=== PATIENT | female | born 1975 | race Hispanic/Latino ===

== ENCOUNTER 2020-03-27 19:31 | Inpatient (IN) | payer SELFPAY ==
[~2020-03-27] VITALS: Ht 160 cm; Wt 89.5 kg
[~2020-03-27 19:31] MED LIST: GLUCOPHAGE500 MG PO
[2020-03-27] MEDS ORDERED: ALBUTEROL SULF 0.083% NEB SOLN 3 ML NEB NEB STA (19:38)
[2020-03-27] MEDS ORDERED: ALBUTEROL/IPRATROPIUM 3 ML NEB NEB ONE (19:45)
[2020-03-27] MEDS ORDERED: METHYLPREDNISOLONE SOD SUCC 125 MG/2ML VIAL IV ONE (19:45)
[2020-03-27] MEDS ORDERED: ALBUTEROL SULFATE HFA 8GM INHALATION AEROSOL INH STA (19:55)
[2020-03-27 20:12] LABS: BASOPHILS % 0.1 % (0.0-1.0); EOSINOPHILS # (AUTO) 0.1 (0.0-0.4); EOSINOPHILS % 1.4 % (0.0-6.0); HEMATOCRIT 34.8 % (34.2-44.1); LYMPHOCYTES # (AUTO) 3.4 (1.0-3.2); LYMPHOCYTES % 40.4 % (18.0-39.1); MEAN CORPUSCULAR HEMOGLOBIN 29.3 pg (28-32); MEAN CORPUSCULAR HGB CONC 34.5 g/dL (31-35); MEAN CORPUSCULAR VOLUME 84.9 fL (81-99); MONOCYTES # (AUTO) 0.6 (0.2-0.8); MONOCYTES % 6.9 % (4.4-11.3); NEUTROPHILS # (AUTO) 4.3 (2.1-6.9); NEUTROPHILS % 50.7 % (38.7-80.0); PLATELET COUNT 231 x10e3/uL (140-360); RED CELL DISTRIBUTION WIDTH 13.2 % (11.7-14.4)
[2020-03-27] MEDS ORDERED: ONDANSETRON HCL INJ 2MG/ML 2ML 2 MG/ML VIAL IV STA (20:12)
[2020-03-27] MEDS: PIPER-TAZ 3.375 GM 50 ML IV SCH (20:12)
[2020-03-27] MEDS ORDERED: ONDANSETRON HCL INJ 2MG/ML 2ML 2 MG/ML VIAL ONE (20:18)
--- NOTE | 2020-03-27 20:21 | NUR ---
COVID-19 SWAB OBTAINED AT THIS TIME. PT TOLERATED WELL.
[2020-03-27] MEDS ORDERED: ALBUTEROL SULF 0.083% NEB SOLN 3 ML NEB NEB ONE (20:30)
[2020-03-27 20:33] LABS: ALANINE AMINOTRANSFERASE 15 IU/L (0-55); ALBUMIN 3.6 g/dL (3.5-5.0); ALBUMIN/GLOBULIN RATIO 0.9 (0.8-2.0); ALKALINE PHOSPHATASE 101 IU/L (40-150); ANION GAP 14.5 mmol/L (8-16); BLOOD UREA NITROGEN 8 mg/dL (7-26); BUN/CREATININE RATIO 11 (6-25); CALCIUM 8.9 mg/dL (8.4-10.2); CARBON DIOXIDE 23 mmol/L (22-29); CHLORIDE 106 mmol/L (98-107); CREATINE KINASE 46 IU/L (29-168); EST GLOMERULAR FILTRATION RATE > 60 ML/MIN (60-); GLUCOSE 122 mg/dL (74-118); POTASSIUM 3.5 mmol/L (3.5-5.1); SODIUM 140 mmol/L (136-145)
[2020-03-27 20:37] LABS: BILIRUBIN,URINE NEGATIVE (NEGATIVE); CLARITY,URINE SL CLOUDY (CLEAR); COLOR,URINE YELLOW (YELLOW); KETONES,URINE NEGATIVE (NEGATIVE); LEUKOCYTE ESTERASE ,URINE NEGATIVE (NEGATIVE); NITRITE,URINE NEGATIVE (NEGATIVE); PROTEIN,URINE DIPSTICK NEGATIVE (NEGATIVE); URINE UROBILINOGEN 0.2 mg/dL (0.2 - 1)
[2020-03-27 20:38] LABS: PREGNANCY TEST, URINE NEGATIVE (NEGATIVE)
--- NOTE | 2020-03-27 20:43 | NUR ---
Patient states she feels better at this time.
[2020-03-27 20:59] LABS: BACTERIA,URINE FEW /HPF; EPITHELIAL CELLS,URINE MODERATE /LPF; RBC,URINE 0-5 /HPF (0-5); WBC,URINE (MAN) 0-5 /HPF (0-5)
--- NOTE | 2020-03-27 21:41 | Diagnostic Imaging Report ---
CT chest without enhancement CPT code: 37740 INDICATION: Cough, shortness of breath TECHNIQUE: Thin collimation axial images obtained from the thoracic inlet to the level of the diaphragm without intravenous contrast. Dose reduction techniques used: Automated exposure control, adjustment of the mAs and/or kVp according to patient size, standardized low-dose protocol, and/or iterative reconstruction technique. RADIATION DOSE: Total DLP: 432.44 mGy*cm Estimated effective dose: (DLP x 0.015 x size factor) mSv CTDIvol has been reviewed. It is below the limits set by the Radiation Protocol Committee (RPC). COMPARISON: None. CHEST FINDINGS: Lymph nodes: No enlarged axillary, supraclavicular lymph nodes. Increased number of mediastinal lymph nodes measure up to 10 mm in short axis. Thyroid: Visualized portions are normal. Mediastinum: Heart is normal in size. No pericardial effusion. The esophagus is normal. Lungs: Right: Multifocal subpleural groundglass infiltrates in the upper and lower lobes. Small amount of associated atelectasis in the posterior basal segment of the lower lobe. Left: Multifocal subpleural groundglass infiltrates in the upper lobe and lower lobe with subsegmental atelectasis in the anterior basal segment of the lower lobe. A nodule in the lower lobe measures 6 mm.. Pleura: No pleural effusion or pleural based mass. ABDOMEN FINDINGS: Status post cholecystectomy and postoperative changes of the stomach suggestive of sleeve gastrectomy. No mass or lymphadenopathy in the visualized portion of the upper abdomen. Bones: No focal osseous lesions. IMPRESSION: Multifocal ground glass infiltrates are suggestive of atypical (viral) pneumonia, particularly SARS CoV-2. Signed by: Dr. Jean Marie Patel MD on 03/27/2020 9:38 PM
--- NOTE | 2020-03-27 21:47 | Emergency Department Note ---
History of Present Illnes History of Present Illness Chief Complaint: COVID PUI History of Present Illness This is a 44 year old female presents to the ED for cough persistent for 8 days . Denies fever but reports dyspnea. Recent COVID-19 test done 6 days ago was negative per patient Historian: Patient Arrival Mode: Car Onset (how long ago): week(s) (1) Severity: moderate Onset quality: gradual Duration (how long): week(s) (1) Timing of current episode: constant Progression: worsening Chronicity: new Context: recent illness Relieving factors: none Exacerbating factors: none Associated symptoms: cough Treatments prior to arrival: none Past Medical/Family History Physician Review I have reviewed the patient's past medical and family history. Any updates have been documented here. Past Medical History Recent Fever: No Clinical Suspicion of Infectio: No New/Unexplained Change in Ment: No Other Medical History: gastric sleeve Past Surgical History: Cholecysctectomy, Appendectomy Other Surgery: X 3 Social History Smoking Cessation: Never Smoker Counseling Performed: No Alcohol Use: None Any Illegal Drug Use: No TB Exposure/Symptoms: No Physically hurt or threatened: No Other Last Tetanus: UTD Any Pre-Existing Lines (PICC,: No Is patient up to date on immun: No Last Flu: unk Last Pneumovax: unk Review of Systems Review of Systems Constitutional: no symptoms EENTM: no symptoms Cardiovascular: no symptoms Respiratory: cough Gastrointestinal: no symptoms Genitourinary: no symptoms Musculoskeletal: no symptoms Neurological: no symptoms Psychological: no symptoms Endocrine: no symptoms Hematological/Lymphatic: no symptoms Review of other systems All other systems reviewed and negative. Physical Exam Related Data Allergies: Coded Allergies: iodine (Verified Allergy, Unknown, 03/27/20) Triage Vital Signs Vital Signs Date Time Temp Pulse Resp B/P (MAP) Pulse Ox O2 Delivery O2 Flow Rate FiO2 03/27/20 19:31 99.1 87 26 100 Physical Exam CONSTITUTIONAL Constitutional: well-developed, well-nourished, ill appearing HENT HENT: normocephalic, atraumatic, oropharynx clear/moist, nose normal HENT L/R: left ext ear normal, right ext ear normal EYES Eyes: PERRL, conjunctivae normal NECK Neck: ROM normal PULMONARY Pulmonary: other (decreased BS b/l bases, tachypneic) CARDIOVASCULAR Cardiovascular: regular rhythm, heart sounds normal, capillary refill normal, normal rate GASTROINTESTINAL Abdominal: soft, nontender, bowel sounds normal GENITOURINARY Genitourinary: exam deferred SKIN Skin: warm, dry MUSCULOSKELETAL Musculoskeletal: ROM normal NEUROLOGICAL Neurological: alert, oriented x 3, no gross motor or sensory deficits PSYCHOLOGICAL Psychological: mood/affect normal, judgement normal Results Laboratory Result Diagram: 03/27/20194403/27/201944 Laboratory Laboratory Tests Test 03/27/20 20:10 03/27/20 19:45 White Blood Count 8.50 x10e3/uL (4.8-10.8) Red Blood Count 4.10 x10e6/uL (3.6-5.1) Hemoglobin 12.0 g/dL (12.0-16.0) Hematocrit 34.8 % (34.2-44.1) Mean Corpuscular Volume 84.9 fL (81-99) Mean Corpuscular Hemoglobin 29.3 pg (28-32) Mean Corpuscular Hemoglobin Concent 34.5 g/dL (31-35) Red Cell Distribution Width 13.2 % (11.7-14.4) Platelet Count 231 x10e3/uL (140-360) Neutrophils (%) (Auto) 50.7 % (38.7-80.0) Lymphocytes (%) (Auto) 40.4 % (18.0-39.1) Monocytes (%) (Auto) 6.9 % (4.4-11.3) Eosinophils (%) (Auto) 1.4 % (0.0-6.0) Basophils (%) (Auto) 0.1 % (0.0-1.0) Neutrophils # (Auto) 4.3 (2.1-6.9) Lymphocytes # (Auto) 3.4 (1.0-3.2) Monocytes # (Auto) 0.6 (0.2-0.8) Eosinophils # (Auto) 0.1 (0.0-0.4) Basophils # (Auto) 0.0 (0.0-0.1) Absolute Immature Granulocyte (auto 0.04 x10e3/uL (0-0.1) Urine Color Yellow (YELLOW) Urine Clarity Sl cloudy (CLEAR) Urine pH 6.5 (5 - 7) Urine Specific [place] 1.015 (1.010-1.025) Urine Protein Negative (NEGATIVE) Urine Glucose (UA) Negative (NEGATIVE) Urine Ketones Negative (NEGATIVE) Urine Blood Trace (NEGATIVE) Urine Nitrite Negative (NEGATIVE) Urine Bilirubin Negative (NEGATIVE) Urine Urobilinogen 0.2 mg/dL (0.2 - 1) Urine Leukocyte Esterase Negative (NEGATIVE) Urine RBC 0-5 /HPF (0-5) Urine WBC 0-5 /HPF (0-5) Urine Epithelial Cells Moderate /LPF (NONE) Urine Bacteria Few /HPF (NONE) Urine Test Negative (NEGATIVE) Sodium Level 140 mmol/L (136-145) Potassium Level 3.5 mmol/L (3.5-5.1) Chloride Level 106 mmol/L (98-107) Carbon Dioxide Level 23 mmol/L (22-29) Anion Gap 14.5 mmol/L (8-16) Blood Urea Nitrogen 8 mg/dL (7-26) Creatinine 0.70 mg/dL (0.57-1.11) Estimat Glomerular Filtration Rate > 60 ML/MIN (60-) BUN/Creatinine Ratio 11 (6-25) Glucose Level 122 mg/dL (74-118) Lactic Acid Level 1.7 mmol/L (0.5-2.0) Calcium Level 8.9 mg/dL (8.4-10.2) Total Bilirubin 0.5 mg/dL (0.2-1.2) Aspartate Amino Transf (AST/SGOT) 17 IU/L (5-34) Alanine Aminotransferase (ALT/SGPT) 15 IU/L (0-55) Alkaline Phosphatase 101 IU/L (40-150) Creatine Kinase 46 IU/L (29-168) Creatine Kinase MB 0.50 ng/mL (0-5.0) Troponin I < 0.001 ng/mL (0-0.300) B-Type Natriuretic Peptide < 10.0 pg/mL (0-100) Total Protein 7.7 g/dL (6.5-8.1) Albumin 3.6 g/dL (3.5-5.0) Globulin 4.1 g/dL (2.3-3.5) Albumin/Globulin Ratio 0.9 (0.8-2.0) Lab results reviewed: Yes Imaging Imaging results reviewed: Yes Impressions [address] [place], [place] [address] Patient Name: DAVON IBARRA MR #: [id number] : 1975 Age/Sex: 44/F Req #: [id number] Adm Physician: Ordered by: CHUCK DELATORRE DO Report #: [id number] Location: ER Room/Bed: Procedure: [id number] CT/CT CHEST WO Exam Date: 03/27/20 Exam Time: 2114 REPORT STATUS: Signed CT chest without enhancement CPT code: 67719 INDICATION: Cough, shortness of breath TECHNIQUE: Thin collimation axial images obtained from the thoracic inlet to the level of the diaphragm without intravenous contrast. Dose reduction techniques used: Automated exposure control, adjustment of the mAs and/or kVp according to patient size, standardized low-dose protocol, and/or iterative reconstruction technique. RADIATION DOSE: Total DLP: 432.44 mGy*cm Estimated effective dose: (DLP x 0.015 x size factor) mSv CTDIvol has been reviewed. It is below the limits set by the Radiation Protocol Committee (RPC). COMPARISON: None. CHEST FINDINGS: Lymph nodes: No enlarged axillary, supraclavicular lymph nodes. Increased number of mediastinal lymph nodes measure up to 10 mm in short axis. Thyroid: Visualized portions are normal. Mediastinum: Heart is normal in size. No pericardial effusion. The esophagus is normal. Lungs: Right: Multifocal subpleural groundglass infiltrates in the upper and lower lobes. Small amount of associated atelectasis in the posterior basal segment of the lower lobe. Left: Multifocal subpleural groundglass infiltrates in the upper lobe and lower lobe with subsegmental atelectasis in the anterior basal segment of the lower lobe. A nodule in the lower lobe measures 6 mm.. Pleura: No pleural effusion or pleural based mass. ABDOMEN FINDINGS: Status post cholecystectomy and postoperative changes of the stomach suggestive of sleeve gastrectomy. No mass or lymphadenopathy in the visualized portion of the upper abdomen. Bones: No focal osseous lesions. IMPRESSION: Multifocal ground glass infiltrates are suggestive of atypical (viral) pneumonia, particularly SARS CoV-2. Signed by: Dr. Mal Patel MD on 03/27/2020 9:38 PM Dictated By: MAL PATEL MD 37 Transcribed By: JULIA on 03/27/202137 COPY TO: CHUCK DELATORRE Assessment & Plan Assessment & Plan Final Impression: (1) Viral pneumonia Assessment & Plan Patient with symptomatic viral URI. Dyspneic . Plan to admit to the hospital for possible COVID-19 infection Depart Disposition: ADMITTED Last Vital Signs Date Time Temp Pulse Resp B/P (MAP) Pulse Ox O2 Delivery O2 Flow Rate FiO2 03/27/20 20:31 76 21 136/78 100 03/27/20 19:31 99.1 Home Meds Reported Medications Metformin Hcl (GLUCOPHAGE) 500 Mg Tablet, 500 MG PO DAILY 02/28/13 Medications in the ED Albuterol Sulfate 9 ml ONCE STAT NEB ; Start 03/27/20 at 19:38; Stop 03/27/20 at 19:42; Status DC Albuterol/ Ipratropium 3 ml ONCE ONCE NEB ; Start 03/27/20 at 19:45; Stop 03/27/20 at 19:46; Status DC Methylprednisolone Sodium Succinate 125 mg ONCE ONCE IV Last administered on 03/27/20at 20:12; Admin Dose 125 MG; Start 03/27/20 at 19:45; Stop 03/27/20 at 19:46; Status DC Piperacillin Sod/ Tazobactam Sod 50 ml @ 50 mls/hr Q6H IV Last administered on 03/27/20at 20:12; Admin Dose 50 MLS/HR; Start 03/27/20 at 20:00; Stop 04/03/20 at 19:59 Albuterol Sulfate 9 ml ONCE ONCE NEB ; Start 03/27/20 at 20:30; Stop 03/27/20 at 20:31; Status DC Albuterol INH RQ4H STAT INH Last administered on 03/27/20at 20:12; Admin Dose 1 GM; Start 03/27/20 at 19:55; Stop 03/27/20 at 19:56; Status DC Ondansetron HCl 4 mg NOW STAT IV Last administered on 03/27/20at 20:17; Admin Dose 4 MG; Start 03/27/20 at 20:12; Stop 03/27/20 at 20:13; Status DC Ondansetron HCl 4 mg STK-MED ONCE .ROUTE ; Start 03/27/20 at 20:18; Stop 03/27/20 at 20:12; Status DC CHUCK DELATORRE DO Mar 27, 2020 21:47
--- NOTE | 2020-03-27 23:55 | NUR ---
Pt admitted to room 184 via WC from home. Pt alert and oriented to name, hospital, time and diagnosis: viral PNA. Pt c/o cough, sob,and weakness x1 week. Pt afebrile, T98 at this time. Pt denies pain or SOB at this time. O2 sat 96% on RA. Pt skin warm and dry, no wounds noted. Lungs CTA. Pt last BM 03/27, brown and formed. Urine yellow and clear. Pt denies dysuria. Pt oriented to room, call light within reach, bed low and locked.
[2020-03-28] VITALS (10 sets, daily range): BP systolic 124–147; BP diastolic 76–87
[2020-03-28] MEDS ORDERED: SODIUM CHLORIDE 0.9% 250ML 250 ML ONE (00:12)
[2020-03-28] MEDS: PIPER-TAZ 3.375 GM 50 ML IV SCH ×3 (00:25→11:46)
[2020-03-28 06:16] LABS: HEMATOCRIT 34.9 % (34.2-44.1); LYMPHOCYTES % 16.8 % (18.0-39.1); MEAN CORPUSCULAR HEMOGLOBIN 29.2 pg (28-32); MEAN CORPUSCULAR HGB CONC 34.4 g/dL (31-35); MEAN CORPUSCULAR VOLUME 84.9 fL (81-99); MONOCYTES # (AUTO) 0.1 (0.2-0.8); MONOCYTES % 1.4 % (4.4-11.3); NEUTROPHILS # (AUTO) 4.7 (2.1-6.9); NEUTROPHILS % 81.1 % (38.7-80.0); PLATELET COUNT 223 x10e3/uL (140-360); RED BLOOD COUNT 4.11 x10e6/uL (3.6-5.1); RED CELL DISTRIBUTION WIDTH 13.2 % (11.7-14.4)
[2020-03-28 06:34] LABS: ALANINE AMINOTRANSFERASE 16 IU/L (0-55); ALBUMIN 3.7 g/dL (3.5-5.0); ALBUMIN/GLOBULIN RATIO 0.9 (0.8-2.0); ALKALINE PHOSPHATASE 93 IU/L (40-150); ANION GAP 15.1 mmol/L (8-16); BLOOD UREA NITROGEN 9 mg/dL (7-26); BUN/CREATININE RATIO 11 (6-25); CARBON DIOXIDE 20 mmol/L (22-29); CHLORIDE 107 mmol/L (98-107); CREATININE, SERUM 0.79 mg/dL (0.57-1.11); EST GLOMERULAR FILTRATION RATE > 60 ML/MIN (60-); GLUCOSE 272 mg/dL (74-118); POTASSIUM 4.1 mmol/L (3.5-5.1); SODIUM 138 mmol/L (136-145)
[2020-03-28 06:57] LABS: CREATINE KINASE 42 IU/L (29-168)
[2020-03-28] MEDS ORDERED: ACETAMINOPHEN 325 MG TAB PO PRN (08:15)
[2020-03-28] MEDS ORDERED: ONDANSETRON HCL INJ 2MG/ML 2ML 2 MG/ML VIAL IV PRN (08:30)
[2020-03-28] MEDS: ASCORBIC ACID 500 MG TAB PO SCH ×2 (08:49→16:40)
[2020-03-28 08:55] LABS: BAND NEUTROPHILS % (MANUAL) 3 %; LYMPHOCYTES % (MANUAL) 14 % (19-48); MONOCYTES % (MANUAL) 2 % (3.4-9.0); MYELOCYTES % (MANUAL) 1 % (0-0); NEUTROPHILS % (MANUAL) 76 % (40-74); PLATELET ESTIMATE ADEQUATE; PLATELET MORPHOLOGY COMMENT NORMAL; RBC MORPHOLOGY COMMENT NORMAL
[2020-03-28] MEDS: CEFTRIAXONE SOD 1 GM/NS 50 ML 50 ML IV SCH (14:35)
[2020-03-28 14:58] LABS: CREATINE KINASE MB 0.4 ng/mL (0-5.0)
[2020-03-28] MEDS: AZITHROMYCIN 500MG/NS 250 ML 250 ML IV SCH (15:21)
--- NOTE | 2020-03-28 15:24 | Consultation ---
DATE OF CONSULTATION: SUBJECTIVE: Ms. Gemma Shen is a 44-year-old female, comes in with shortness of breath and cough for 8 days and no fever. The patient came here. PHYSICAL EXAMINATION: GENERAL: She is currently alert, oriented, does not seem acute distress. VITAL SIGNS: Stable, currently afebrile. HEENT: She is not icteric. NECK: Supple. CHEST: Clear. HEART: S1 and S2. No S3, S4, or murmur. ABDOMEN: Soft. LABORATORY DATA: Her COVID-19 was positive. Sodium 138, potassium 4.1 with a creatinine 0.79. White count 5.4, hemoglobin 4.1. She had CT of the chest, which was multifocal so ground-glass infiltrate. IMPRESSION: COVID-19 admission, concerned about community acquired pneumonia. We will put her on Rocephin and azithromycin, vitamin C and zinc. Oxygen as needed. We will follow. MD CATALINA Barakat/JONATHON /[id number]
--- NOTE | 2020-03-28 20:26 | History and Physical ---
PRIMARY CARE PHYSICIAN: None. CHIEF COMPLAINT: Shortness of breath and cough. HISTORY OF PRESENT ILLNESS: This is a 44-year-old female with past medical history of diabetes controlled with diet only, presented to the ER with complaints of shortness of breath and cough that has been going on for about a week. She reports she has been feeling very weak and with shortness of breath on exertion. She denies any ill contact, any chest pain, nausea, vomiting. She reports also had loss of appetite and loss of but improving since last night. Her labs were unremarkable. CT chest showed multi focal ground-glass infiltrates suggestive of atypical bilateral pneumonia. COVID was detected positive. PAST MEDICAL HISTORY: Diet-controlled diabetes. SURGICAL HISTORY: She reports appendectomy, cholecystectomy, carpal tunnel, hysterectomy, . FAMILY MEDICAL HISTORY: She reports diabetes. SOCIAL HISTORY: She denies any tobacco, alcohol, or illicit drug use. ALLERGIES: SHE IS ALLERGIC TO IODINE. REVIEW OF SYSTEMS: Twelve systems of review of systems are negative except for as noted above. PHYSICAL EXAMINATION: VITAL SIGNS: Temperature 97.5, pulse is 55, respirations 18, blood pressure 130/76, pulse ox is 97% on room air GENERAL: Fatigued. HEENT: Normocephalic, atraumatic. NECK: Supple. LUNGS: Decreased breath sounds with some crackles in the bottom. CARDIOVASCULAR: Regular heart rate and rhythm. GI: Soft and nontender. NEUROLOGIC: Alert, awake, and oriented x3. MUSCULOSKELETAL: Moves all extremities. SKIN: Dry. PSYCH: Calm. LABORATORY DATA: WBC 8.5, hemoglobin 12.0, and platelets 231. Sodium 138, potassium 4.1, . Hemoglobin A1c is 5.5. Lactic acid 1.7. AST 16, ALT 16, CK 42. Troponin 0.001, . IMAGING DATA: Chest shows multifocal ground-glass infiltrates suggestive of atypical viral pneumonia. IMPRESSION: 1. Acute respiratory distress due to COVID-19 pneumonia. Infectious Disease consulted, she was started on azithromycin, Rocephin, vitamin C, and zinc sulfate. She is afebrile with O2 sats above 92% on room air . 2. Diet-controlled diabetes. Hemoglobin A1c is 5.5. We will continue to monitor. 3. Deep vein thrombosis prophylaxis. We will start on heparin subcu. Plan is to continue current treatment, if continues to improve, anticipate discharge home tomorrow. Dictated by VAISHALI Luna [place] MD JEFE Carolina/MODL /[id number]
[2020-03-29] VITALS (8 sets, daily range): BP systolic 109–136; BP diastolic 66–92
[2020-03-29] MEDS ORDERED: FAMOTIDINE 20 MG TAB PO ONE (06:45)
[2020-03-29] MEDS ORDERED: FAMOTIDINE 20 MG/2 ML VIAL IV NR (07:30)
[2020-03-29] MEDS: ASCORBIC ACID 500 MG TAB PO SCH ×2 (07:53→16:55)
[2020-03-29] MEDS: ZINC SULFATE 50 MG CAP PO SCH (07:53)
[2020-03-29] MEDS: CEFTRIAXONE SOD 1 GM/NS 50 ML 50 ML IV SCH (14:33)
[2020-03-29] MEDS: AZITHROMYCIN 500MG/NS 250 ML 250 ML IV SCH (15:16)
--- NOTE | 2020-03-29 16:32 | NUR ---
progress [id number]
[2020-03-29] MEDS ORDERED: GUAIFENESIN 600MG/DEXTROMETHORPHAN 30MG TABSR PO PRN (16:45)
--- NOTE | 2020-03-29 18:54 | Progress Note ---
DATE: 03/29/2020 GASTROENTEROLOGY PROFESSOR: Dr. Knox with ID. CHIEF COMPLAINT: Shortness of breath and cough. SUBJECTIVE: The patient seems to be more weak and short of breath today. She reports has constant cough, dry. She denies any chest pain but appears to be weak. She is afebrile, no nausea, vomiting, or diarrhea. PHYSICAL EXAMINATION: VITAL SIGNS: Temperature 97.9, pulse is 63, respirations 20, blood pressure 134/74, pulse ox is 98% on room air. GENERAL: Fatigued, generalized weakness. HEENT: Normocephalic atraumatic. NECK: Supple. LUNGS: Decreased breath sounds. CARDIOVASCULAR: Regular rate and rhythm. GI: Soft and nontender. NEUROLOGIC: Alert, awake, oriented x3. MUSCULOSKELETAL: Moves all extremities. SKIN: Dry. PSYCH: Calm. IMPRESSION: 1. Acute respiratory distress due to COVID-19 pneumonia. Continue on azithromycin, Rocephin, vitamin C, and zinc sulfate. She is afebrile. Infectious Disease on board. 2. Diet-controlled diabetes. Hemoglobin A1c was 5.5. We will continue to monitor. 3. Deep vein thrombosis prophylaxis. Heparin subcu. PLAN: To continue current treatment, looks more weak and debilitated today. We will order Mucinex to help with cough and monitor overnight. Dictated by VAISHALI Luna Marielle Juarez MD MY/MODL /[id number]
--- NOTE | 2020-03-29 19:24 | Progress Note ---
DATE: SUBJECTIVE: Ms. Shen is feeling better today. PHYSICAL EXAMINATION: GENERAL: She is currently alert, oriented, does not seem to be in acute distress. VITALS: Stable, currently afebrile. HEENT: She is not icteric. NECK: Supple. CHEST: Clear. HEART: S1 and S2. No S3, S4, or murmur. ABDOMEN: Soft. IMPRESSION: Coronavirus disease-19, present admission, improving. The patient with no fever. Cultures are negative. The patient will be discharged home tomorrow with a Z-Steffen and zinc supplement and vitamin C. We will follow. MD CATALINA Barakat/JONATHON /[id number]
[2020-03-29] MEDS: HEPARIN SOD (PORCINE) 5,000 UNIT/ML VIAL SC SCH (23:00)
[2020-03-30 04:08] VITALS: BP 127/75
[2020-03-30 08:24] VITALS: BP 124/79
[2020-03-30 09:20] VITALS: BP 124/79
[2020-03-30] MEDS: ASCORBIC ACID 500 MG TAB PO SCH ×2 (09:54→17:00)
[2020-03-30] MEDS: ZINC SULFATE 50 MG CAP PO SCH (09:54)
[2020-03-30] MEDS: HEPARIN SOD (PORCINE) 5,000 UNIT/ML VIAL SC SCH (09:57)
[2020-03-30 11:21] VITALS: BP 135/89
[2020-03-30] MEDS: CEFTRIAXONE SOD 1 GM/NS 50 ML 50 ML IV SCH (15:00)
[2020-03-30] MEDS ORDERED: SODIUM CHLORIDE 0.9% 250ML 250 ML ONE (15:47)
[2020-03-30 16:00] VITALS: BP 131/86
--- NOTE | 2020-03-30 16:49 | NUR ---
progress [id number]
[2020-03-30] MEDS: AZITHROMYCIN 500MG/NS 250 ML 250 ML IV SCH (17:00)
[2020-03-30] MEDS ORDERED: ASCORBIC ACID500 MG PO (17:14)
[2020-03-30] MEDS ORDERED: Zinc Sulfate PO (17:14)
--- NOTE | 2020-03-30 19:54 | Progress Note ---
DATE: SUBJECTIVE: Ms. Shen is doing better. No new complaint. REVIEW OF SYSTEMS: Otherwise unremarkable. PHYSICAL EXAMINATION: GENERAL: She is currently alert, oriented, does not seem to be in acute distress. VITAL SIGNS: Stable, currently afebrile. HEENT: She is not icteric. NECK: Supple. CHEST: Clear. IMPRESSION: COVID-19 improving, could be discharged to home. No treatment. Could be discharged with push p.o. fluid. Follow up with me in 2-3 weeks. Home isolation for 2 weeks. MD CATALINA Barakat/MODL /[id number]
--- NOTE | 2020-03-30 23:30 | Discharge Summary ---
PRIMARY CARE PHYSICIAN: None. FINAL DISCHARGE DIAGNOSES: 1. Acute respiratory distress due to COVID-19 pneumonia. 2. Diet-controlled diabetes. 3. Generalized weakness. CONSULTANTS: Dr. Knox with Infectious Disease. PROCEDURES: None. HISTORY: Per HPI. HOSPITAL COURSE: This is a 44-year-old female with past medical history of diet-controlled diabetes, presented to the ER with complaints of generalized weakness, shortness of breath and cough. Workup revealed that she has PCR COVID-2019. Chest x-ray showed multifocal ground-glass infiltrates, which are suggestive of viral pneumonia. She was started on Rocephin and azithromycin. She remained afebrile. She was given vitamin C and zinc sulfate. Today, she is much improved, vital signs stable, will discharge home to continue self-quarantine for 2 weeks and follow up with Dr. Knox be in 2-3 weeks for repeat agrawal test. Precautions given. PHYSICAL EXAMINATION: VITAL SIGNS: Temperature 98.1, pulse is 63, respirations 18, blood pressure 131/86, pulse ox is 96% on room air. GENERAL: No acute distress. LUNGS: Decreased breath sounds. CARDIOVASCULAR: Regular rate and rhythm. GI: Soft and nontender. NEUROLOGIC: Alert, awake, and oriented x3. MUSCULOSKELETAL: Moves all extremities. CONDITION AT DISCHARGE: Improved and stable. DISCHARGE MEDICATIONS: Please see medication reconciliation list. FOLLOWUP: Follow up with Dr. Knox in 2-3 weeks for a repeat COVID test. TIME SPENT: Total time of discharge is 32 minutes. Dictated by VAISHALI Luna Marielle Juarez MD MY/MODL /[id number]
== END 2020-03-30 20:15 | disposition home or self-care (01) | DRG 177 ==
LOC: ER 19:31 → ERHOLD 22:36 → IMCU 23:45
PROVIDERS: ADMIT Internal Medicine; ATTEND Internal Medicine
DX: U07.1 COVID-19 (principal); J12.89 Other viral pneumonia; R06.03 Acute respiratory distress; E11.9 Type 2 diabetes mellitus without complications; Z83.3 Family history of diabetes mellitus; Z90.49 Acquired absence of other specified parts of digestive tract; Z91.041 Radiographic dye allergy status; R53.1 Weakness
CPT/HCPCS: 36415; 71250; 80053; 81001; 81025; 82550; 82553; 82948; 83036; 83605; 83880; 84484; 85025; 85730; 87040; 87635; 99284; J0456; J0696; J1644; J2405; J2543; J2930; J7050

== ENCOUNTER 2022-09-24 00:40 | Emergency (ER) | payer MEDICARE ==
[~2022-09-24] VITALS: Ht 160 cm; Wt 90.3 kg
[~2022-09-24 00:40] MED LIST changes: +ASCORBIC ACID500 MG PO; +Zinc Sulfate PO
[2022-09-24] MEDS ORDERED: BENZONATATE 100 MG CAP PO SCH (01:30)
[2022-09-24] MEDS ORDERED: AZITHROMYCIN250 MG PO (02:19)
[2022-09-24] MEDS ORDERED: MEDROL4 M2 PO (02:19)
[2022-09-24] MEDS ORDERED: BENZONATATE200 MG PO (02:42)
== END 2022-09-24 02:52 | disposition home or self-care (01) ==
LOC: ER 00:50
DX: R05.9 Cough, unspecified (principal); J40 Bronchitis, not specified as acute or chronic; Z20.822 Contact with and (suspected) exposure to COVID-19; Z98.84 Bariatric surgery status
CPT/HCPCS: 71046; 99282; U0002

== ENCOUNTER 2025-04-14 19:09 | Emergency (ER) | payer SELFPAY ==
[~2025-04-14] VITALS: Ht 160 cm; Wt 90.3 kg
[~2025-04-14 19:09] MED LIST changes: +AZITHROMYCIN250 MG PO; +BENZONATATE200 MG PO; +MEDROL4 M2 PO
[2025-04-14 19:27] VITALS: TEMP 98.4
[2025-04-14] MEDS ORDERED: KETOROLAC TROMETHAMINE 60 MG/2 ML VIAL IM STA (19:28)
[2025-04-14] MEDS ORDERED: ONDANSETRON HCL 4 MG ORAL DISINTEGRATING TAB PO STA (19:28)
[2025-04-14] MEDS ORDERED: KETOROLAC TROMETHAMINE 30 MG/ML VIAL ONE (19:40)
[2025-04-14] MEDS: SODIUM CHLORIDE 0.9% 1000ML 1,000 ML IV STA (19:41)
[2025-04-14] MEDS: ONDANSETRON HCL INJ 2MG/ML 2ML 2 MG/ML VIAL IV STA (19:41)
[2025-04-14] MEDS: KETOROLAC TROMETHAMINE 30 MG/ML VIAL IV STA (19:42)
[2025-04-14 19:44] LABS: BASOPHILS % 0.4 % (0.0-1.0); EOSINOPHILS # (AUTO) 0.2 (0.0-0.4); EOSINOPHILS % 1.5 % (0.0-6.0); HEMATOCRIT 37.7 % (34.2-44.1); HEMOGLOBIN 13.1 g/dL (12.0-16.0); LYMPHOCYTES % 27.7 % (18.0-39.1); MEAN CORPUSCULAR HEMOGLOBIN 29.6 pg (28-32); MEAN CORPUSCULAR HGB CONC 34.7 g/dL (31-35); MEAN CORPUSCULAR VOLUME 85.3 fL (81-99); MONOCYTES # (AUTO) 0.6 (0.2-0.8); MONOCYTES % 5.9 % (4.4-11.3); NEUTROPHILS % 64.3 % (38.7-80.0); PLATELET COUNT 226 x10e3/uL (140-360); RED BLOOD COUNT 4.42 x10e6/uL (3.6-5.1); RED CELL DISTRIBUTION WIDTH 13.2 % (11.7-14.4); WHITE BLOOD COUNT 10.89 x10e3/uL (4.8-10.8)
[2025-04-14 19:53] LABS: CLARITY,URINE CLEAR (CLEAR); COLOR,URINE STRAW (YELLOW)
[2025-04-14 19:54] LABS: BILIRUBIN,URINE NEGATIVE (NEGATIVE); GLUCOSE, URINE >=1000 (NEGATIVE); KETONES,URINE NEGATIVE (NEGATIVE); LEUKOCYTE ESTERASE ,URINE NEGATIVE (NEGATIVE); NITRITE,URINE NEGATIVE (NEGATIVE); PH,URINE 6.5 (5 - 7); PROTEIN,URINE DIPSTICK NEGATIVE (NEGATIVE); URINE UROBILINOGEN 0.2 mg/dL (0.2 - 1)
[2025-04-14 19:58] LABS: PREGNANCY TEST, URINE NEGATIVE (NEGATIVE)
[2025-04-14 20:03] LABS: ALBUMIN 3.9 g/dL (3.5-5.0); ALBUMIN/GLOBULIN RATIO 1.1 (0.8-2.0); ANION GAP 12.3 mmol/L (8-16); BILIRUBIN,TOTAL 0.6 mg/dL (0.2-1.2); CALCIUM 9.2 mg/dL (8.4-10.2); CREATININE, SERUM 0.95 mg/dL (0.57-1.11); POTASSIUM 4.3 mmol/L (3.5-5.1); TOTAL PROTEIN 7.5 g/dL (6.5-8.1)
[2025-04-14 20:05] LABS: EPITHELIAL CELLS,URINE FEW /LPF
[2025-04-14] MEDS: HYDRALAZINE HCL 20 MG/ML VIAL IV STA (20:17)
[2025-04-14] MEDS: Morphine 4mg INJECTION 4 MG/ML INJ IV STA (22:02)
[2025-04-14 22:08] VITALS: PULSE 77; RESP 17
[2025-04-14] MEDS ORDERED: CYCLOBENZAPRINE5 MG PO (22:16)
[2025-04-14 22:33] VITALS: BP 176/91; PULSE 72; RESP 18; TEMP 97.7; O2SAT 99
== END 2025-04-14 22:35 | disposition home or self-care (01) ==
LOC: ER 19:34
DX: R10.30 Lower abdominal pain, unspecified (principal); R11.2 Nausea with vomiting, unspecified; K76.0 Fatty (change of) liver, not elsewhere classified; I10 Essential (primary) hypertension; E11.65 Type 2 diabetes mellitus with hyperglycemia; E78.5 Hyperlipidemia, unspecified; Z98.84 Bariatric surgery status
CPT/HCPCS: 36415; 74176; 80053; 81001; 81025; 83690; 85025; 99284; J0360; J1885; J2270; J2405; J7030

== ENCOUNTER 2025-07-01 11:42 | Emergency (ER) | payer SELFPAY ==
[~2025-07-01] VITALS: Ht 160 cm; Wt 95.3 kg
[~2025-07-01 11:42] MED LIST changes: +CYCLOBENZAPRINE5 MG PO
[2025-07-01 12:10] VITALS: TEMP 98
[2025-07-01 13:00] VITALS: PULSE 68; RESP 16; O2SAT 98
== END 2025-07-01 13:30 | disposition home or self-care (01) ==
LOC: ER 12:34
DX: M79.675 Pain in left toe(s) (principal); M79.674 Pain in right toe(s); G62.9 Polyneuropathy, unspecified; R20.0 Anesthesia of skin; I10 Essential (primary) hypertension; E11.9 Type 2 diabetes mellitus without complications; E78.5 Hyperlipidemia, unspecified; Z98.84 Bariatric surgery status
CPT/HCPCS: 99281